=== PATIENT | female | born 1980 | race Caucasian/White ===

== ENCOUNTER 2017-02-14 18:12 | Emergency (ER) ==
[2017-02-14] MEDS ORDERED: MORPHINE 4 MG/ML SYRINGE IM STA (18:14)
[2017-02-14] MEDS ORDERED: ZOFRAN 4 MG/2 ML IM STA (18:14)
[2017-02-14 18:17] VITALS: TEMP 98.4; BMI 29.6
--- NOTE | 2017-02-14 18:17 | ED.PDOC ---
General ED Provider: Dr. CK ROBERSON-ER Chief Complaint: Abdominal Pain Stated Complaint: i think i have a kidney stone Time Seen by Physician: 18:16 Mode of Arrival: Walk-In Information Source: Patient, Family Exam Limitations: No limitations Primary Care Provider: JOHAN LEVY Nursing and Triage Documentation Reviewed and Agree: Yes GI Complaint Exam - Abdominal Pain Complaint/Exam Onset: Gradual Duration: several hours Symptoms Are: Still present Timing: Constant Initial Severity: Moderate Current Severity: Moderate Location of Pain: LLQ Radiates To: Reports: LLQ Character: Reports: Dull, Aching, Colicky Aggravating: Reports: None Alleviating: Reports: None Associated Signs and Symptoms: Reports: Back pain, Nausea. Denies: Diaphoresis , Fever, Cough, Chest pain, Dizziness, Constipation, Blood in stool, Dysuria, Urinary frequency, Decreased urine output, Decreased appetite, Vaginal bleeding , Vaginal discharge, Vomiting, Diarrhea, Sore throat, Decreased activity Ovarian Torsion Risk Factors: Reports: Reproductive age, Tubal ligation Surgical Obstruction Risk Factors: Reports: Colicky abdominal pain Related Surgical History: Reports: Tubal ligation Patient Rh Status: Unknown Differential Diagnoses: Renal Colic, UTI Review of Systems - Review Of Systems Constitutional: Reports: No symptoms Eyes: Reports: No symptoms Ears, Nose, Mouth, Throat: Reports: No symptoms Respiratory: Reports: No symptoms Cardiac: Reports: No symptoms GI: Reports: No symptoms : Reports: Flank pain, Pain Musculoskeletal: Reports: Back pain Skin: Reports: No symptoms Neurological: Reports: No symptoms Endocrine: Reports: No symptoms Hematologic/Lymphatic: Reports: No symptoms All Other Systems: Reviewed and Negative Past Medical History - Past Medical History Previously Healthy: Yes Endocrine: Reports: Unknown Cardiovascular: Reports: Unknown Respiratory: Reports: Unknown Hematological: Reports: Unknown Gastrointestinal: Reports: Unknown Genitourinary: Reports: Unknown Neuro/Psych: Reports: Unknown Musculoskeletal: Reports: Unknown Cancer: Reports: Unknown - Surgical History General Surgical History: Reports: Tubal ligation - Family History Family History: Reports: Unknown - Social History Smoking Status: Former smoker Hx Substance Use: No Alcohol Screening: None Lives: With family Physical Exam - Physical Exam Appearance: Well-appearing Pain Distress: Moderate Eyes: TETE ENT: Ears normal, Nose normal, Oropharynx normal Neck: Supple Respiratory: Airway patent, Breath sounds clear, Breath sounds equal, Respirations nonlabored Cardiovascular: RRR, Pulses normal, No rub, No murmur GI/: Soft, Nontender, No masses, Bowel sounds normal, No Organomegaly Musculoskeletal: Normal strength, ROM intact, No edema, No calf tenderness Skin: Warm, Dry, Normal color Neurological: Sensation intact Psychiatric: Affect appropriate Interpretation - Radiology Interpretation Radiology Interpretation By: Radiologist Radiology Results: Positive Exam Interpreted: CT Scan Re-Evaluation - Re-Evaluation Time of Re-Evaluation: 18:52 Status: Improved Vital Signs Stable: Yes Pain Level: 2 Appearance: NAD Lungs: Clear Skin: Warm and Dry Neuro: Alert and Oriented X3 CV: RRR Critical Care Note - Critical Care Note Total Time (mins): 0 Course - Course Hematology/Chemistry: 02/14/17 18:20 Orders, Labs, Meds: Lab Review 02/14/17 02/14/17 18:20 18:30 WBC 8.90 RBC 4.46 Hgb 13.6 Hct 37.4 MCV 83.9 MCH 30.5 MCHC 36.4 H RDW Coeff of Mert 11.7 Plt Count 239 Immature Gran % (Auto) 0.4 Neut % (Auto) 64.7 Lymph % (Auto) 21.8 Reeves % (Auto) 7.9 Eos % (Auto) 4.6 Baso % (Auto) 0.6 Immature Gran # (Auto) 0.0 Neut # 5.8 Lymph # 1.9 Reeves # 0.7 Eos # 0.4 Baso # 0.1 Urine Color [place] Urine Clarity Clear Urine pH 5.5 Ur Specific [place] 1.025 Urine Protein 1+ Urine Glucose (UA) Trace Urine Ketones 1+ Urine Blood 3+ Urine Nitrite Positive Urine Bilirubin 1+ Urine Urobilinogen 2.0 Ur Leukocyte Esterase Negative Urine Microscopic RBC 30-50 Urine Microscopic WBC 0-2 Ur Squamous Epith Cells 5-10 Urine Bacteria Trace Orders Category Date Time Status CBC W/ AUTO DIFF Stat LAB 02/14/17 18:20 Completed COMPREHENSIVE METABOLIC PANEL Stat LAB 02/14/17 18:20 Received URINALYSIS C & S IF INDICATED Stat LAB 02/14/17 18:30 Completed Ketorolac Tromethamine [Toradol] MEDS 02/14/17 18:44 Discontinued 60 mg IM ONCE STA Morphine Sulfate [Morphine 4 mg/ml Syringe] MEDS 02/14/17 18:14 Discontinued 4 mg IM ONCE STA Ondansetron HCl/Pf [Zofran 4 mg/2 ml] MEDS 02/14/17 18:14 Discontinued 4 mg IM ONCE STA CT ABDOMEN/PELVIS WO CONTRAST Stat RADS 02/14/17 18:14 Completed Medications Discontinued Medications Generic Name Dose Route Start Last Admin Trade Name Abbie PRN Reason Stop Dose Admin Ketorolac Tromethamine 60 mg 02/14/17 18:44 02/14/17 18:50 Toradol IM 02/14/17 18:45 60 mg ONCE STA Administration Morphine Sulfate 4 mg 02/14/17 18:14 02/14/17 18:26 Morphine 4 Mg/Ml Syringe IM 02/14/17 18:15 4 mg ONCE STA Administration Ondansetron HCl 4 mg 02/14/17 18:14 02/14/17 18:27 Zofran 4 Mg/2 Ml IM 02/14/17 18:15 4 mg ONCE STA Administration Vital Signs: Temp Pulse Resp BP Pulse Ox 02/14/17 18:12 98.4 F 92 H 20 120/70 97 Departure - Departure Time of Disposition: 18:52 Disposition: HOME SELF-CARE Discharge Problem: Kidney stone Instructions: Kidney Stones (ED), Renal Colic (ED) Condition: Good Pt referred to PMD for follow-up: Yes Additional Instructions: strain all urine--norco 7.5mg q 4hrs prn pain #12--fluids---flomax 0.4mg q daily #2--recheck in 48hrs as needed Allergies/Adverse Reactions: Allergies Penicillins Adverse Reaction (Verified 02/14/17 18:17) Home Medications: Ambulatory Orders B12/Levomefolate Calcium/B-6 [Folbic Rf Tablet] 1 each PO DAILY 10/24/13 Calcium/Magnesium/Vit D3 [Calcium 500 mg Tablet] 1,000 mg PO DAILY 10/24/13 Cetirizine HCl [Zyrtec] 10 mg PO DAILY 10/24/13 Enalapril Maleate 20 mg PO DAILY 10/24/13 Levothyroxine Sodium [Synthroid] 150 mcg PO DAILY 10/25/13 Multivitamin 1 cap PO DAILY 10/25/13 Disposition Discussed With: Patient, Family
[2017-02-14 18:28] LABS: BASOPHILS # (AUTO) 0.1 K/uL (0-0.2); BASOPHILS % (AUTO) 0.6 % (0.0-3.0); EOSINOPHILS # (AUTO) 0.4 K/ul (0.0-0.7); EOSINOPHILS % (AUTO) 4.6 % (0.0-7.0); HEMATOCRIT 37.4 % (37.0-47.0); HEMOGLOBIN 13.6 g/dl (12.0-16.0); IMMATURE GRANULOCYTE % (AUTO) 0.4 % (0.0-5.0); LYMPHOCYTES # (AUTO) 1.9 K/uL (0.60-3.4); LYMPHOCYTES % (AUTO) 21.8 (10.0-50.0); MEAN CORPUSCULAR HEMOGLOBIN 30.5 pg (27.0-31.0); MEAN CORPUSCULAR HGB CONC 36.4 (31.8-35.4); MEAN CORPUSCULAR VOLUME 83.9 fl (81.0-99.0); MONOCYTES # (AUTO) 0.7 K/uL (0.4-2.0); MONOCYTES % (AUTO) 7.9 (0-10); NEUTROPHILS # (AUTO) 5.8 K/ul (2.0-6.9); NEUTROPHILS % (AUTO) 64.7; PLATELET COUNT 239 10^3/uL (140-440); RED BLOOD COUNT 4.46 10^6/ul (4.20-5.40)
[2017-02-14 18:38] LABS: BILIRUBIN,URINE 1+ (NEGATIVE); KETONES,URINE 1+ (NEGATIVE); LEUKOCYTE ESTERASE ,URINE Negative (NEGATIVE); NITRITE,URINE Positive (NEGATIVE); PH,URINE 5.5 (5-9); PROTEIN,URINE 1+ (NEGATIVE); URINE, BLOOD 3+ (NEGATIVE)
[2017-02-14 18:39] LABS: ADD URINE MICROSCOPIC YES
[2017-02-14 18:40] VITALS: BP 120/70
[2017-02-14 18:40] LABS: BACTERIA,URINE TRACE (NOT PRESENT)
[2017-02-14] MEDS ORDERED: TORADOL IM STA (18:44)
--- NOTE | 2017-02-14 18:49 | CT ---
Exam: CT of the abdomen and pelvis without contrast History: Left flank pain Technique: [address] of the abdomen and pelvis without intravascular contrast FINDINGS: The lung bases are clear. No significant liver abnormality. The adrenals, pancreas and sp tegan are unremarkable. Prior gastric surgery. The gallbladder appears normal. Nonobstructing 3 mm calculus in the right kidney. Left kidney with mild hydroureter and periureteral stranding. There is a 3 mm ureterovesicular junction calculus on the left. The appendix is normal. Bowel loops demon strate normal caliber. No inflamatory change seen in the mesentery or retroperitoneum. Vascular stru ctures appear normal by noncontrast CT. Colonic diverticulosis of the sigmoid. No inflammation of the pelvic fat. Follicular ovaries. Lef t ureterovesicular junction calculus. No acute findings of the skeleton. Impression: 1. Mild left hydroureter with 3 mm ureterovesicular junction calculus. 2. Single nonobstructing calculus in the right kidney 3. Colonic diverticulosis of the sigmoid
[2017-02-14 18:55] LABS: ALBUMIN 4.2 g/dL (3.4-5.0); ALBUMIN/GLOBULIN RATIO 1.2; ANION GAP 15.8; BILIRUBIN,TOTAL 0.44 mg/dL (0.00-1.20); BUN/CREATININE RATIO 16.16; CALCIUM 9.8 mg/dL (8.2-10.2); CREATININE 0.99 mg/dL (0.60-1.30); POTASSIUM 3.8 mmol/L (3.5-5.10); TOTAL PROTEIN 7.7 g/dL (6.4-8.2)
[2017-02-14] MEDS ORDERED: FLOMAX PO STA (18:55)
== END 2017-02-14 19:06 | disposition home or self-care (01) ==
LOC: ED 18:12
DX: N20.0 Calculus of kidney (principal)
CPT/HCPCS: 36415; 80053; 81001; 85025; 96372; 99283